=== PATIENT | female | born 1980 | race Caucasian/White ===

== ENCOUNTER → 2017-07-01 | Outpatient (CLI) | payer OTHER ==
--- NOTE | 2017-07-02 07:20 | US ---
EXAMINATION TYPE: US thyroid st tissue head/neck DATE OF EXAM: 07/01/2017 COMPARISON: NONE CLINICAL HISTORY: Thyroid Nodule E04.1. Neck swelling GLAND SIZE: Right Lobe: 4.4 x 1.3 x 1.5 cm Overall Parenchyma: homogenous Left Lobe: 4.5 x 1.1 x 1.5 cm Overall Parenchyma: homogeneous Isthmus Thickness: 0.3 cm NODULES RIGHT: # of nodules measured on right: 1 1. 1.3 X 0.8 x 0.9 cm hypoechoic solid nodule at the lower pole with well-defined margins. This nod ule is wider than tall and shows intranodular vascularity. Prior size: no previous LEFT: # of nodules measured on left: 1 1. 1.1 X 0.7 x 1.1 cm hypoechoic solid nodule at the mid pole with well-defined margins. This nodul e is wider than tall and shows intranodular vascularity. Prior size: no previous ISTHMUS: # of nodules measured in the isthmus: 0 Bilateral neck scanned, no evidence of lymphadenopathy. IMPRESSION: Solid nonspecific thyroid nodules. Consider tissue diagnosis.
== END | disposition home or self-care (01) ==
LOC: RADUSWWP 16:26
PROVIDERS: ATTEND Family Medicine
DX: E04.2 Nontoxic multinodular goiter (principal)
CPT/HCPCS: 76536

== ENCOUNTER 2017-07-25 11:49 | Day surgery (SDC) | payer OTHER ==
[2017-07-25 12:12] VITALS: BP 128/67; PULSE 77; RESP 18; TEMP 97.8
[2017-07-25] MEDS ORDERED: ALPRAZolam 0.5 MG TAB PO STA (12:18)
--- NOTE | 2017-07-25 13:40 | US ---
ULTRASOUND GUIDED FNA THYROID BIOPSY: CLINICAL HISTORY: 1.3 cm right and 1.1left thyroid nodule requested for biopsy FINDINGS: The procedure was explained to the patient. The risks, complications, benefits and alternatives were discussed and any questions were answered. Informed consent was obtained. Patient was placed supin e on the ultrasound table and prepped and draped in the usual sterile fashion. Utilizing a 25 gauge needle, five passes were made into the requested to thyroid nodules. Patient was stable throughout the procedure. Pathology is pending. All elements of maximal barrier technique were utilized. IMPRESSION: 1. Successful ultrasound guided FNA thyroid biopsy.
== END 2017-07-25 13:30 | disposition home or self-care (01) ==
LOC: RADPROMAIN 11:49
PROVIDERS: ATTEND Physician Assistant
DX: E04.2 Nontoxic multinodular goiter (principal)
CPT/HCPCS: 10022; 76942; 88173; 88305

== ENCOUNTER → 2018-02-18 | Outpatient (CLI) | payer OTHER ==
--- NOTE | 2018-02-18 17:17 | US ---
EXAMINATION TYPE: US thyroid st tissue head/neck DATE OF EXAM: 02/18/2018 COMPARISON: 07/01/2017 CLINICAL HISTORY: E04.1 Thyroid Nodule. Follow up thyroid nodules GLAND SIZE: Right Lobe: 4.6 x 1.3 x 1.4 cm Overall Parenchyma: homogenous Left Lobe: 4.2 x 1.3 x 1.5 cm Overall Parenchyma: homogeneous Isthmus Thickness: 0.3 cm NODULES RIGHT: # of nodules measured on right: 1 1. 1.2 X 0.7 x 0.8 cm hypoechoic mixed nodule at the mid pole with well-defined margins. This nodul e is wider than tall and shows intranodular vascularity. Prior size: 1.3 x 0.8 x 0.9 cm LEFT: # of nodules measured on left: 1 1. 1.1 X 0.8 x 0.9 cm hypoechoic solid nodule at the mid pole with well-defined margins. This nodul e is wider than tall and shows intranodular vascularity. Prior size: 1.1 x 0.7 x 1.1 cm ISTHMUS: # of nodules measured in the isthmus: 1 1. 1.1 X 0.6 x 0.9 cm hypoechoic solid nodule at the mid isthmus with well-defined margins. This no dule is wider than tall and shows intranodular vascularity. Prior size: no previous Bilateral neck scanned, no evidence of lymphadenopathy. IMPRESSION: Multiple hypoechoic nodules. No dominant thyroid mass. This is suggestive of benign etiology. There is overall no adverse change compared to old exam.
== END | disposition home or self-care (01) ==
LOC: RADUSWWP 16:41
PROVIDERS: ATTEND Family Medicine
DX: E04.2 Nontoxic multinodular goiter (principal)
CPT/HCPCS: 76536

== ENCOUNTER → 2020-07-04 | Outpatient (CLI) | payer BC ==
--- NOTE | 2020-07-05 03:26 | MR ---
EXAMINATION TYPE: MR knee RT wo con DATE OF EXAM: 07/04/2020 COMPARISON: None HISTORY: Rt knee pain Multiplanar multiecho imaging of the right knee was performed without contrast. There is a 15 x 10 mm popliteal cyst. The anterior and posterior cruciate ligaments are intact. There is minimal joint fluid.. The medial and lateral menisci appear intact. There is no evidence of menis moustapha tear. The collateral ligaments appear intact. Joint spaces are fairly well-maintained. I see no bony destru ctive process. There is no evidence of bone edema. There is no evidence of soft tissue mass. IMPRESSION: Small popliteal cyst. There is a minute knee joint effusion. No evidence of ligamentous or meniscal t ear.
== END | disposition home or self-care (01) ==
LOC: RADMRIMAIN 18:09
PROVIDERS: ATTEND Physician Assistant
DX: M71.21 Synovial cyst of popliteal space [Baker], right knee (principal); M25.461 Effusion, right knee

== ENCOUNTER → 2023-01-29 | Outpatient (CLI) | payer BC ==
--- NOTE | 2023-01-29 19:19 | CT ---
EXAMINATION TYPE: CT abdomen pelvis wo con CT DLP: 655.9 mGycm, Automated exposure control for dose reduction was used. DATE OF EXAM: 01/29/2023 7:10 PM COMPARISON: None CLINICAL INDICATION:Female, 42 years old with history of R10.30; right side flank/abdominal pain x 3 months. TECHNIQUE: Axial CT of the abdomen and pelvis. Sagittal and coronal reformats were created on a [employer] workstation. Contrast used: None Oral contrast used: without Oral Contrast FINDINGS: LOWER CHEST: Unremarkable ABDOMEN LIVER: Unremarkable GALLBLADDER AND BILE DUCTS: The gallbladder is surgically absent. PANCREAS: Unremarkable. SPLEEN: Unremarkable. ADRENAL GLANDS: Unremarkable. KIDNEYS AND URETERS: Left 7 mm renal calculus. There is extrarenal pelvis. No evidence of obstructive uropathy.\ No evidence of right renal calculus or obstructive uropathy. Multiple pelvic phleboliths are seen yudy ng the course of the ureter and the pelvis. PELVIS BLADDER: Unremarkable REPRODUCTIVE: Left ovarian cyst measuring 4.1 x 3.1 cm. ABDOMEN & PELVIS STOMACH AND BOWEL: No evidence of bowel obstruction. Appendix is normal. PERITONEUM/RETROPERITONEUM: No evidence of pneumoperitoneum or free fluid. VASCULATURE: No evidence of aortic aneurysm. MUSCULOSKELETAL: No acute osseous abnormalities. Mild disc degeneration changes are present throughou t the thoracolumbar spine. LYMPH NODES: No gross evidence for lymphadenopathy. SOFT TISSUE/ABDOMINAL WALL: Unremarkable IMPRESSION: 1. No right-sided acute process to explain the patient's pain. The appendix is normal. There is no r ight-sided renal calculus or obstructive uropathy. 2. Nonobstructing left renal calculus measuring 7 mm. 3. Left ovarian cyst measuring 4.1 x 3.1 cm.
== END | disposition home or self-care (01) ==
LOC: RADCTMAIN 18:52
PROVIDERS: ATTEND Family Medicine
DX: N20.0 Calculus of kidney (principal); N83.202 Unspecified ovarian cyst, left side; R10.30 Lower abdominal pain, unspecified
CPT/HCPCS: 74176